=== PATIENT | male | born 1980 | race Caucasian/White ===

== ENCOUNTER 2017-11-25 10:53 | Emergency (ER) | payer SELFPAY ==
[2017-11-25 11:02] VITALS: BP 126/70; PULSE 83; RESP 16; TEMP 97.8; O2SAT 97
--- NOTE | 2017-11-25 13:58 | PD ---
HPI Chief Complaint: Skin Problem Time Seen by Provider: 11:02 Travel History International Travel<30 days: No Contact w/Intl Traveler<30days: No Traveled to known affect area: No History of Present Illness HPI 37-year-old male presents emergency department for evaluation of a painful lesion in his right axilla. He noticed this 2 days ago. He pain is constant, aching. Intermittently severe. Denies fever chills. No other symptoms to report. PFSH Past Medical History Medical History: Denies Significant Hx Social History Tobacco Use: No Review of Systems Except as stated in HPI: all other systems reviewed are Neg Physical Exam Narrative Well-nourished male patient. He is ambulatory. Appears nontoxic. Regular heart rate. Even respirations. He moves all extremities freely. No obvious edema. No obvious focal deficits weakness. Data Data Last Documented VS Vital Signs Date Time Temp Pulse Resp B/P (MAP) Pulse Ox O2 Delivery O2 Flow Rate FiO2 11/25/17 11:02 97.8 83 16 126/70 (88) 97 MDM Medical Decision Making Medical Screen Exam Complete: Yes Emergency Medical Condition: Yes Medical Record Reviewed: Yes Differential Diagnosis Abscess versus folliculitis versus adenopathy versus cyst Narrative Course 37-year-old male presents emergency department for evaluation of painful lesion in his right axilla. Prior to that placement, patient chooses to leave. AMA: The risks of leaving against medical advice without further evaluation treatment were discussed with the patient. These risks include cardiac dysfunction, cardiac dysrhythmia, possible heart attack, possible stroke or . The patient indicated understanding of these risks and appeared to have the capacity to make this decision. Diagnosis Primary Impression: Abscess Disposition: 07 AGAINST MEDICAL ADVICE Condition: Stable Danielle Richey Nov 25, 2017 13:58
== END 2017-11-25 13:56 | disposition left against medical advice (07) ==
LOC: NED 10:53
DX: L98.9 Disorder of the skin and subcutaneous tissue, unspecified (principal); Z53.21 Procedure and treatment not carried out due to patient leaving prior to being seen by health care provider
CPT/HCPCS: 99281